=== PATIENT | male | born 1955 | race Caucasian/White ===

== ENCOUNTER 2022-01-08 01:20 | Emergency (ER) | payer BC ==
[~2022-01-08] VITALS: Ht 180.1 cm; Wt 134.7 kg
[2022-01-08 01:38] LABS: BASOPHILS # (AUTO) 0.1 10^3/uL (0.0-0.1); BASOPHILS % (AUTO) 0 % (0-10); EOSINOPHILS % (AUTO) 0 % (0-10); HEMATOCRIT 25 % (40-54); HEMOGLOBIN 8.2 g/dL (13.3-17.7); LYMPHOCYTES # (AUTO) 4.5 10^3/uL (1.0-4.0); LYMPHOCYTES % (AUTO) 29 % (12-44); MEAN CORPUSCULAR HEMOGLOBIN 33 pg (25-34); MEAN CORPUSCULAR HGB CONC 34 g/dL (32-36); MEAN CORPUSCULAR VOLUME 98 fL (80-99); MEAN PLATELET VOLUME 12.7 fL (9.0-12.2); MONOCYTES # (AUTO) 1.5 10^3/uL (0.0-1.0); MONOCYTES % (AUTO) 9 % (0-12); NEUTROPHILS # (AUTO) 9.6 10^3/uL (1.8-7.8); NEUTROPHILS % (AUTO) 61 % (42-75); PLATELET COUNT 107 10^3/uL (130-400); WHITE BLOOD COUNT 15.8 10^3/uL (4.3-11.0)
--- NOTE | 2022-01-08 01:42 | ED GI ---
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 HAS BEEN HAVING BLACK STOOLS SINCE THE DAY BEFORE YESTERDAY STOMACH HURTS "A LITTLE BIT" SLIGHT DIZZINESS NO CHEST PAIN SLIGHT SHORTNESS OF BREATH DENIES HISTORY OF SIMILAR DENIES HISTORY OF GI OR ABDOMINAL PROBLEMS, DENIES HISTORY OF LIVER PROBLEMS TAKES 81 MG ASPIRIN, NO OTHER BLOOD THINNERS STATES HE QUIT DRINKING 29 YEARS AGO, AND QUIT USING DRUGS 29 YEARS AGO SMOKES 1/2 PPD PT STATES HE HAS HTN AND DIABETES DENIES ANY PRIOR HEART PROBLEMS OR PROCEDURES LAST FOOD INTAKE WAS 0400 YESTERDAY MORNING--HAD A BOWL OF CEREAL Allergies and Home Medications Allergies Coded Allergies: No Known Drug Allergies (Unverified , 01/08/22) Patient Home Medication List Home Medication List Reviewed: Yes Review of Systems Review of Systems Constitutional: see HPI, malaise, weakness Respiratory: See HPI, Shortness of Air Cardiovascular: No Symptoms Reported Gastrointestinal: See HPI, Abdominal Pain, Vomiting Psychiatric/Neurological: No Symptoms Reported Endocrine: No Symptoms Reported Past Ossbqbd-Qnadqz-Czqqju Hx Patient Social History Tobacco Use?: Yes Tobacco type used: Cigarettes Smoking Status: Current Everyday Smoker Substance use?: Yes Substance type: Marijuana Additional substance use comme: QUIT 29 YEARS AGO Alcohol Use?: Yes (QUIT 29 YEARS AGO) Past Medical History Surgeries: Yes (BILATERAL KNEE REPLACEMENTS; LEFT SHOULDER SURGERY) Joint Replacement, Orthopedic Respiratory: No Cardiac: Yes Hypertension Neurological: No Genitourinary: No Gastrointestinal: No Musculoskeletal: Yes Arthritis Endocrine: Yes Diabetes, Non-Insulin dep HEENT: No Cancer: No Integumentary: No Blood Disorders: No Physical Exam Vital Signs Vital Signs - First Documented 01/08/22 01/08/22 01:24 02:43 Temp 36.9 Pulse 86 Resp 20 B/P (MAP) 73/54 (60) Pulse Ox 99 O2 Delivery Room Air O2 Flow Rate 2.00 Capillary Refill : Height/Weight/BMI Height: '" Weight: lbs. oz. kg; BMI Method: General Appearance: WD/WN, obese, other (LETHARGIC, KEEPS EYES CLOSED. PT WITH LARGE AMOUNT OF BRIGHT RED BLOOD IN AND AROUND MOUTH/CHIN/NECK AND ON FACE. LARGE AMOUNT OF DRIED BLOOD ON LEGS. ) HEENT: pale conjunctivae (R), pale conjunctivae (L), other (BRIGHT RED BLOOD IN MOUTH) Respiratory: normal breath sounds, no respiratory distress, no accessory muscle use Cardiovascular: regular rate, rhythm, no murmur Gastrointestinal: normal bowel sounds, non tender, soft Extremities: normal inspection Neurologic/Psychiatric: no motor/sensory deficits, alert, oriented x 3 Skin: cool, diaphoresis, damp, pallor, tattoos/piercings (MULTIPLE TATTOOS) Progress/Results/Core Measures Results/Orders Lab Results Laboratory Tests Test 01/08/22 01:29 01/08/22 02:03 01/08/22 03:40 01/08/22 04:15 Range/Units White Blood Count 15.8 H 11.4 H 11.8 H 4.3-11.0 10^3/uL Red Blood Count 2.51 L 1.84 L 2.67 L 4.30-5.52 10^6/uL Hemoglobin 8.2 L 6.0 #*L 8.7 #L 13.3-17.7 g/dL Hematocrit 25 L 18 *L 26 L 40-54 % Mean Corpuscular Volume 98 100 H 97 80-99 fL Mean Corpuscular Hemoglobin 33 33 33 25-34 pg Mean Corpuscular Hemoglobin Concent 34 33 34 32-36 g/dL Red Cell Distribution Width 15.6 H 15.3 H 15.1 H 10.0-14.5 % Platelet Count 107 L 84 L 58 L 130-400 10^3/uL Mean Platelet Volume 12.7 H 12.1 13.3 H 9.0-12.2 fL Immature Granulocyte % (Auto) 0 % Neutrophils (%) (Auto) 61 42-75 % Lymphocytes (%) (Auto) 29 12-44 % Monocytes (%) (Auto) 9 0-12 % Eosinophils (%) (Auto) 0 0-10 % Basophils (%) (Auto) 0 0-10 % Neutrophils # (Auto) 9.6 H 1.8-7.8 10^3/uL Lymphocytes # (Auto) 4.5 H 1.0-4.0 10^3/uL Monocytes # (Auto) 1.5 H 0.0-1.0 10^3/uL Eosinophils # (Auto) 0.0 0.0-0.3 10^3/uL Basophils # (Auto) 0.1 0.0-0.1 10^3/uL Immature Granulocyte # (Auto) 0.1 0.0-0.1 10^3/uL Neutrophils % (Manual) 60 % Lymphocytes % (Manual) 29 % Monocytes % (Manual) 11 % Band Neutrophils 0 % Blood Morphology Comment NORMAL Prothrombin Time 17.8 H 12.2-14.7 SEC INR Comment 1.4 0.8-1.4 Activated Partial Thromboplast Time 31 24-35 SEC Sodium Level 142 135-145 MMOL/L Potassium Level 5.2 H 3.6-5.0 MMOL/L Chloride Level 108 H 98-107 MMOL/L Carbon Dioxide Level 15 L 21-32 MMOL/L Anion Gap 19 H 5-14 MMOL/L Blood Urea Nitrogen 77 H 7-18 MG/DL Creatinine 1.76 H 0.60-1.30 MG/DL Estimat Glomerular Filtration Rate 43 BUN/Creatinine Ratio 44 Glucose Level 169 H 70-105 MG/DL Calcium Level 9.0 8.5-10.1 MG/DL Corrected Calcium 10.0 8.5-10.1 MG/DL Magnesium Level 2.0 1.6-2.4 MG/DL Total Bilirubin 0.7 0.1-1.0 MG/DL Aspartate Amino Transf (AST/SGOT) 27 5-34 U/L Alanine Aminotransferase (ALT/SGPT) 22 0-55 U/L Alkaline Phosphatase 51 40-136 U/L Total Protein 5.2 L 6.4-8.2 GM/DL Albumin 2.8 L 3.2-4.5 GM/DL Amylase Level 52 25-125 U/L Lipase 55 8-78 U/L Serum Alcohol < 10 <10 MG/DL Urine Color YELLOW Urine Clarity CLEAR Urine pH 5.5 5-9 Urine Specific [place] >=1.030 1.016-1.022 Urine Protein NEGATIVE NEGATIVE Urine Glucose (UA) NEGATIVE NEGATIVE Urine Ketones TRACE H NEGATIVE Urine Nitrite NEGATIVE NEGATIVE Urine Bilirubin NEGATIVE NEGATIVE Urine Urobilinogen 0.2 < = 1.0 MG/DL Urine Leukocyte Esterase NEGATIVE NEGATIVE Urine RBC (Auto) NEGATIVE NEGATIVE Urine RBC NONE /HPF Urine WBC NONE /HPF Urine Squamous Epithelial Cells 0-2 /HPF Urine Crystals NONE /LPF Urine Bacteria NEGATIVE /HPF Urine Casts PRESENT /LPF Urine Hyaline Casts 5-10 H /LPF Urine Mucus MODERATE H /LPF Urine Culture Indicated NO Urine Opiates Screen NEGATIVE NEGATIVE Urine Oxycodone Screen NEGATIVE NEGATIVE Urine Methadone Screen NEGATIVE NEGATIVE Urine Propoxyphene Screen NEGATIVE NEGATIVE Urine Barbiturates Screen NEGATIVE NEGATIVE Ur Tricyclic Antidepressants Screen POSITIVE H NEGATIVE Urine Phencyclidine Screen NEGATIVE NEGATIVE Urine Amphetamines Screen NEGATIVE NEGATIVE Urine Methamphetamines Screen NEGATIVE NEGATIVE Urine Benzodiazepines Screen NEGATIVE NEGATIVE Urine Cocaine Screen NEGATIVE NEGATIVE Urine Cannabinoids Screen NEGATIVE NEGATIVE Test 01/08/22 04:35 01/08/22 05:47 01/08/22 12:05 Range/Units SARS-CoV-2 RNA (RT-PCR) Not Detected Not Detecte White Blood Count 12.0 H 4.3-11.0 10^3/uL Red Blood Count 2.67 L 4.30-5.52 10^6/uL Hemoglobin 8.8 L 13.3-17.7 g/dL Hematocrit 26 L 40-54 % Mean Corpuscular Volume 96 80-99 fL Mean Corpuscular Hemoglobin 33 25-34 pg Mean Corpuscular Hemoglobin Concent 34 32-36 g/dL Red Cell Distribution Width 15.4 H 10.0-14.5 % Platelet Count 65 L 130-400 10^3/uL Mean Platelet Volume 12.9 H 9.0-12.2 fL Lab Scanned Report Transfusion Reaction Form [id number] My Orders Orders - XIOMARA CRANDALL DO Ed Iv/Invasive Line Start (01/08/22:25) Monitor-Rhythm Ecg Trace Only (01/08/22:25) Alcohol (01/08/22 01:25) Amylase (01/08/22 01:25) Cbc With Automated Diff (01/08/22:25) Comprehensive Metabolic Panel (01/08/22:25) Lipase (01/08/22:25) Magnesium (01/08/22:25) Protime With Inr (01/08/22:25) Partial Thromboplastin Time (01/08/22:25) Ed Iv/Invasive Line Start (01/08/22:25) Ed Iv/Invasive Line Start (01/08/22 01:34) Ns Iv 1000 Ml (Sodium Chloride 0.9%) (01/08/22 01:45) Ed Iv/Invasive Line Start (01/08/22 01:34) Ns Iv 1000 Ml (Sodium Chloride 0.9%) (01/08/22 01:45) Ondansetron Injection (Zofran Injectio (01/08/22 01:45) Pantoprazole Injection (Protonix Injecti (01/08/22 01:45) Drug Screen Stat (Urine) (01/08/22 01:35) Ua Culture If Indicated (01/08/22 01:35) Type And Screen (01/08/22 01:35) Manual Differential (01/08/22 01:29) Ct Chest/Abdomen/Pelvis Wo (01/08/22 02:02) Ed Iv/Invasive Line Start (01/08/22 02:04) Ns Iv 1000 Ml (Sodium Chloride 0.9%) (01/08/22 02:15) Red Cells Leukocytes Reduced (01/08/22 02:08) Cbc No Diff (01/08/22 02:09) Ns Iv 500 Ml (Sodium Chloride 0.9%) (01/08/22 02:29) Ed Iv/Invasive Line Start (01/08/22 02:35) Ns Iv 1000 Ml (Sodium Chloride 0.9%) (01/08/22 02:45) Catheter(Urinary) Insert & Ass 03,15 (01/08/22 03:21) Cbc No Diff (01/08/22 04:12) Covid 19 Inhouse Test (01/08/22 04:33) Isolation Central Supply Req (01/08/22 04:33) Cbc No Diff (01/08/22 05:34) Octreotide Injection (Sandostatin Inje (01/08/22 06:00) Ns (Ivpb) (Sodium C... W/Octreotide Inj (01/08/22 06:00) Ns (Ivpb) (Sodium C... W/Pantoprazole In (01/08/22 06:00) Fresh Frozen Plasma (01/08/22 05:47) Ns Iv 500 Ml (Sodium Chloride 0.9%) (01/08/22 06:00) Ns (Ivpb) (Sodium Chloride 0.9% Ivpb Bag (01/08/22 05:52) Octreotide Injection (Sandostatin Inje (01/08/22 05:53) Medications Given in ED Vital Signs/I&O 01/08/22 01/08/22 01/08/22 01/08/22 01:24 02:43 02:49 02:55 Temp 36.9 36.5 36.4 36.4 Pulse 86 77 75 77 Resp 20 16 20 19 B/P (MAP) 73/54 (60) 71/36 106/38 91/34 Pulse Ox 99 100 O2 Delivery Room Air Nasal Cannula Nasal Cannula Nasal Cannula O2 Flow Rate 2.00 2.00 2.00 01/08/22 01/08/22 03:20 06:50 Temp 36.7 36.6 Pulse 79 75 Resp 15 20 B/P (MAP) 92/59 109/54 Pulse Ox 96 99 O2 Delivery Nasal Cannula Nasal Cannula O2 Flow Rate 2.00 2.00 Progress Progress Note : Progress Note INITIAL BP'S 60'S-70'S/30'S GIVEN IV FLUIDS, ZOFRAN AND PROTONIX--NAUSEA RESOLVED PT REMAINED SEVERELY HYPOTENSIVE UNTIL BLOOD TRANSFUSION WAS GIVEN, THEN BP UP TO 90'S NO DROP IN HGB AFTER BLOOD TRANSFUSION 0430--BP IS NOW 109 SYSTOLIC, HR IN MID 70'S, O2 SAT 100% ON 2L/NC BP REMAINED IN 90'S FOR REMAINDER OF ER STAY PT STATES HE FEELS BETTER AND "CAN SEE NOW" COLOR IS MUCH IMPROVED. MARKED DELAY IN OBTAINING CT REPORT Diagnostic Imaging Comments CT CHEST/ABDOMEN/PELVIS--PER [facility] VIA FAX AT 0430: -CIRRHOSIS AND GASTRO-ESOPHAGEAL VARICES SUSPECTED; CHOLELITHIASISL MILD COLONIC DIVERTICULOSIS WITHOUT ACUTE DIVERTICULITISL 6 MM NODULE LLL. Reviewed: Reviewed by Me Departure Communication (Admissions) 0430--CALLED [facility]. PAGING HOSPITALIST/TRUCK DRIVING, AND WILL CALL BACK. 0506--CALLED [facility], STILL ATTEMPTING TO CONTACT HOSPITALIST/TRUCK DRIVING. THEY WILL CALL BACK. INFORMED THEM OF NEGATIVE COVID-19 TEST. 0545--[facility] CALLED BACK. SPOKE WITH DR. PAGAN, BASKET BRAIDER, ADVISES 1 UNIT OF FFP, OCTREOTIDE BOLUS AND DRIP AND PROTONIX DRIP. PT TO GO TO ER. PAGING ER PHYSICIAN. 0552--AIR TRANSPORT BEING CONTACTED. 0558--SPOKE WITH DR. NICHOLS, ER PHYSICIAN, ACCEPTS PT FOR TRANSFER. 0600--NO AIR TRANSPORT AVAILABLE DUE TO WEATHER. [facility] IS EN ROUTE FOR EMERGENT TRANSFER Impression Primary Impression: Acute upper gastrointestinal hemorrhage Additional Impressions: Nontraumatic hemorrhagic shock Acute blood loss anemia Dehydration Renal insufficiency Esophageal varices with bleeding Cirrhosis Disposition: XFER SHT-TRM HOSP Condition: Stable Transfer Transfer Reason: Exceeds level of care (NO GI SPECIALIST HERE) Transfer Facility: [facility] Method of Transfer: EMS Departure-Patient Inst. Referrals: UNKNOWN (PCP) Primary Care Physician XIOMARA CRANDALL DO Jan 08, 2022 01:42
[2022-01-08] MEDS ORDERED: ONDANSETRON 4 MG/2 ML (SDV) Z0FRAN IVP ONE (01:45)
[2022-01-08] MEDS ORDERED: PANTOPRAZOLE 40 MG (PROTONIX) VIAL IV ONE (01:45)
[2022-01-08] MEDS ORDERED: NS IV 1000 ML 1,000 ML IV SCH ×4 (01:45→02:45)
[2022-01-08 01:50] LABS: ALBUMIN 2.8 GM/DL (3.2-4.5); CHLORIDE 108 MMOL/L (98-107); POTASSIUM 5.2 MMOL/L (3.6-5.0); SODIUM 142 MMOL/L (135-145)
[2022-01-08 01:51] LABS: INR 1.4 (0.8-1.4); PROTHROMBIN TIME PATIENT 17.8 SEC (12.2-14.7)
[2022-01-08 01:52] LABS: AMYLASE 52 U/L (25-125)
[2022-01-08 01:53] LABS: GLUCOSE 169 MG/DL (70-105); TOTAL PROTEIN 5.2 GM/DL (6.4-8.2)
[2022-01-08 01:54] LABS: BILIRUBIN,TOTAL 0.7 MG/DL (0.1-1.0); CARBON DIOXIDE 15 MMOL/L (21-32)
[2022-01-08 01:56] LABS: ALKALINE PHOSPHATASE 51 U/L (40-136); CREATININE SERUM 1.76 MG/DL (0.60-1.30); GFR ESTIMATED 43
[2022-01-08 01:57] LABS: BUN/CREATININE RATIO 44
[2022-01-08 01:59] LABS: ALANINE AMINOTRANSFERASE 22 U/L (0-55)
[2022-01-08 02:00] LABS: LIPASE 55 U/L (8-78)
[2022-01-08 02:21] LABS: MEAN CORPUSCULAR HEMOGLOBIN 33 pg (25-34); MEAN CORPUSCULAR HGB CONC 33 g/dL (32-36); MEAN CORPUSCULAR VOLUME 100 fL (80-99); MEAN PLATELET VOLUME 12.1 fL (9.0-12.2); PLATELET COUNT 84 10^3/uL (130-400); WHITE BLOOD COUNT 11.4 10^3/uL (4.3-11.0)
[2022-01-08 02:22] LABS: HEMATOCRIT 18 % (40-54)
[2022-01-08] MEDS ORDERED: NS IV 500 ML 500 ML ONE (02:29)
[2022-01-08 02:31] LABS: BAND NEUTROPHILS 0 %; LYMPHOCYTES % (MANUAL) 29 %; NEUTROPHILS % (MANUAL) 60 %
[2022-01-08 02:32] LABS: MONOCYTES % (MANUAL) 11 %; RBC MORPH NORMAL
[2022-01-08 02:43] VITALS: BP 71/36
[2022-01-08 02:49] VITALS: BP 106/38
[2022-01-08 02:55] VITALS: BP 91/34
[2022-01-08 03:20] VITALS: BP 92/59
[2022-01-08 03:49] LABS: BILIRUBIN,URINE NEGATIVE (NEGATIVE); CLARITY,URINE CLEAR; COLOR,URINE YELLOW; GLUCOSE, URINE (UA) NEGATIVE (NEGATIVE); KETONES,URINE TRACE (NEGATIVE); LEUKOCYTE ESTERASE ,URINE NEGATIVE (NEGATIVE); NITRITE,URINE NEGATIVE (NEGATIVE); PH,URINE 5.5 (5-9); PROTEIN,URINE NEGATIVE (NEGATIVE)
[2022-01-08 03:59] LABS: AMPHETAMINE SCREEN, URINE NEGATIVE (NEGATIVE); BACTERIA,URINE NEGATIVE /HPF; BARBITURATE SCREEN URINE NEGATIVE (NEGATIVE); BENZODIAZEPINES SCREEN URINE NEGATIVE (NEGATIVE); CANNABINOID SCREEN, URINE NEGATIVE (NEGATIVE); COCAINE SCREEN URINE NEGATIVE (NEGATIVE); METHAMPHETAMINE SCREEN URINE S NEGATIVE (NEGATIVE); OPIATE SCREEN URINE NEGATIVE (NEGATIVE); SQUAMOUS EPITHELIAL CELL,UR 0-2 /HPF; TRICYCLIC ANTIDEPRESSANTS SCRE POSITIVE (NEGATIVE)
[2022-01-08 04:00] LABS: METHADONE STAT NEGATIVE (NEGATIVE); OXYCODONE STAT NEGATIVE (NEGATIVE); PROPOXYPHENE STAT NEGATIVE (NEGATIVE)
[2022-01-08 04:22] LABS: HEMATOCRIT 26 % (40-54); HEMOGLOBIN 8.7 g/dL (13.3-17.7); MEAN CORPUSCULAR HEMOGLOBIN 33 pg (25-34); MEAN CORPUSCULAR HGB CONC 34 g/dL (32-36); MEAN CORPUSCULAR VOLUME 97 fL (80-99); MEAN PLATELET VOLUME 13.3 fL (9.0-12.2); PLATELET COUNT 58 10^3/uL (130-400); WHITE BLOOD COUNT 11.8 10^3/uL (4.3-11.0)
[2022-01-08] MEDS ORDERED: NS (IVPB) 100 ML ONE (05:52)
[2022-01-08] MEDS ORDERED: OCTREOTIDE (FOR BOLUS) 50 MCG/ML SYR (SandoSTATIN) ONE (05:53)
[2022-01-08 05:54] LABS: HEMATOCRIT 26 % (40-54); HEMOGLOBIN 8.8 g/dL (13.3-17.7); MEAN CORPUSCULAR HEMOGLOBIN 33 pg (25-34); MEAN CORPUSCULAR HGB CONC 34 g/dL (32-36); MEAN CORPUSCULAR VOLUME 96 fL (80-99); MEAN PLATELET VOLUME 12.9 fL (9.0-12.2); PLATELET COUNT 65 10^3/uL (130-400)
[2022-01-08] MEDS ORDERED: OCTREOTIDE INJECTION 50 MCG in NS (IVPB) 50 ML IV ONE (06:00)
[2022-01-08] MEDS ORDERED: NS IV 500 ML 500 ML IV SCH (06:00)
[2022-01-08] MEDS ORDERED: PANTOPRAZOLE INJECTION 200 MG in NS (IVPB) 100 ML IV SCH (06:00)
[2022-01-08] MEDS ORDERED: OCTREOTIDE INJECTION 500 MCG in NS (IVPB) 99 ML IV SCH (06:00)
--- NOTE | 2022-01-08 06:22 | Diagnostic Imaging Report ---
INDICATION: Gastrointestinal bleed. TECHNIQUE: Multiple contiguous axial images were obtained through the chest, abdomen, and pelvis without the use of intravenous contrast. Auto Exposure Controls were utilized during the CT exam to meet ALARA standards for radiation dose reduction. There is no prior study for comparison. CT chest findings: There are no enlarged mediastinal or hilar nodes. There are no enlarged axillary nodes or chest wall lesions. There is no pleural or pericardial fluid. Aorta is nonaneurysmal. There are some coronary calcifications. Lung parenchymal windows demonstrate mild bibasilar atelectasis. There is no consolidation. There is a small 7 mm nodule in the left lower lobe. CT abdomen and pelvis findings: The liver shows diffuse inhomogeneity with nodular contour compatible with cirrhosis. There is some questionable varices. No definite focal liver lesion seen without contrast. There are incidental gallstones in the gallbladder, gallbladder is not distended. The spleen, adrenals, and pancreas are normal. The kidneys bilaterally are unremarkable. There is no retroperitoneal mass or adenopathy. There is no ascites or abnormal fluid collection. Visualized bowel loops are not distended or thickened. There is a small periumbilical hernia containing fat. There is no pelvic mass or free fluid. IMPRESSION: CT chest shows no acute finding. There is a small 7 mm nodule in the left lower lobe, suggest follow-up in 6-12 months. There is mild bibasilar atelectasis. CT abdomen and pelvis demonstrates diffuse inhomogeneity of the liver, question cirrhosis. There is some questionable varices. There are incidental gallstones. There is no sign of bowel obstruction or focal bowel wall thickening. Dictated by: Dictated on workstation # [id number]
[2022-01-08 06:50] VITALS: BP 109/54
== END 2022-01-08 06:45 | disposition short-term general hospital (02) ==
LOC: ER 01:26
DX: K92.2 Gastrointestinal hemorrhage, unspecified (principal); R57.8 Other shock; D62 Acute posthemorrhagic anemia; E86.0 Dehydration; N28.9 Disorder of kidney and ureter, unspecified; I85.01 Esophageal varices with bleeding; K74.60 Unspecified cirrhosis of liver; E66.9 Obesity, unspecified; F17.210 Nicotine dependence, cigarettes, uncomplicated; Z20.822 Contact with and (suspected) exposure to COVID-19
CPT/HCPCS: 51702; 71250; 74176; 80053; 80306; 81000; 82150; 83690; 83735; 85007; 85027; 85610; 85730; 86850; 86900; 86901; 86920; 87636; 93041; G0480; P9016; P9017; 36415; 80320

== ENCOUNTER 2022-01-13 17:37 | Emergency (ER) | payer BC ==
[~2022-01-13] VITALS: Ht 182 cm; Wt 136.0 kg
[2022-01-13] MEDS ORDERED: ONDANSETRON 4 MG/2 ML (SDV) Z0FRAN ONE (17:43)
[2022-01-13] MEDS ORDERED: ONDANSETRON 4 MG/2 ML (SDV) Z0FRAN IVP ONE ×2 (17:45→18:45)
[2022-01-13] MEDS ORDERED: OCTREOTIDE INJECTION 50 MCG in NS (IVPB) 50 ML IV ONE ×2 (17:45→18:15)
[2022-01-13] MEDS ORDERED: NS IV 1000 ML 1,000 ML IV SCH ×3 (17:45→18:45)
[2022-01-13] MEDS ORDERED: NOREPINEPHRINE 8 MG/250 ML 250 ML IV SCH (17:45)
[2022-01-13] MEDS ORDERED: PANTOPRAZOLE INJECTION 200 MG in NS (IVPB) 100 ML IV SCH (17:45)
[2022-01-13] MEDS ORDERED: PANTOPRAZOLE 40 MG (PROTONIX) VIAL IV ONE ×2 (17:45→18:15)
[2022-01-13] MEDS ORDERED: NS IV 1000 ML 1,000 ML IV ONE (17:45)
[2022-01-13] MEDS ORDERED: NOREPINEPHRINE 8 MG/250 ML 250 ML IV ONE (17:48)
[2022-01-13] MEDS ORDERED: NS (IVPB) 100 ML ONE (17:48)
[2022-01-13] MEDS ORDERED: OCTREOTIDE (FOR BOLUS) 50 MCG/ML SYR (SandoSTATIN) ONE (17:48)
--- NOTE | 2022-01-13 17:53 | ED GI ---
General Stated Complaint: SPITTING UP BLOOD/DIZZY Source of Information: Patient, EMS, Old Records (XIOMARA CRANDALL DO) History of Present Illness Date Seen by Provider: Jan 13, 2022 Time Seen by Provider: 17:43 Initial Comments PT ARRIVES VIA EMS PT SEEN HERE 01/08/22 FOR NEW ONSET OF UPPER GI BLEED, WITH HEMORRHAGIC SHOCK--TRANSFERRED TO [facility] FOR ESOPHAGEAL VARICES. 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 PT HAS DENIED EVERY HAVING ANY GI OR LIVER PROBLEMS PRIOR TO LAST WEEK. PT HAS REPORTED THAT HE QUIT DRINKING 29 YEARS AGO. SEE OLD CHART FOR DETAILS (XIOMARA CRANDALL DO) Allergies and Home Medications Allergies Coded Allergies: No Known Drug Allergies (Unverified , 01/08/22) Patient Home Medication List Home Medication List Reviewed: Yes (XIOMARA CRANDALL DO) Review of Systems Review of Systems Constitutional: dizziness, malaise, weakness Gastrointestinal: Abdominal Pain, Nausea, Vomiting, Other (VOMITING BLOOD) (XIOMARA CRANDALL DO) Past Huedsjr-Hlvsjx-Zitujj Hx Immunizations Up To Date First/Initial COVID19 Vaccinat: 2020 Second COVID19 Vaccination Hieu: 2020 (XIOMARA CRANDALL DO) Past Medical History Surgeries: Yes (BILAT KNEE REPLACEMENTS;L SHOULDER SURGERY;EGD/ESOPHAGEAL VARICES BANDING) Joint Replacement, Orthopedic Respiratory: No Cardiac: Yes Hypertension Neurological: No Genitourinary: No Gastrointestinal: Yes (01/08/22-UGI BLEED/ESOPHAGEAL VARICES BANDED) Liver Disease/Jaundice, Gastrointestinal Bleed, Esophageal Varices, Cirrhosis Musculoskeletal: Yes Arthritis Endocrine: Yes (OBESITY) Diabetes, Non-Insulin dep HEENT: No Cancer: No Integumentary: No Blood Disorders: Yes (GI BLOOD LOSS ANEMIA 01/07/22) (XIOMARA CRANDALL DO) Physical Exam Vital Signs Capillary Refill : (XIOMARA CRANDALL DO) Height/Weight/BMI Height: '" Weight: lbs. oz. kg; 41.00 BMI Method: General Appearance: obese, other (MOANING, LETHARGIC. GIVING MINIMAL ANSWERS) Respiratory: normal breath sounds, no respiratory distress, no accessory muscle use Cardiovascular: regular rate, rhythm, no murmur Gastrointestinal: tenderness (DIFFUSE UPPER ABDOMINAL TENDERNESS), other (ABDOMEN IS OBESE--UNABLE TO DETERMINE IF ORGANOMEGALY IS PRESENT) Extremities: pedal edema (2+ EDEMA BILATERALL) Neurologic/Psychiatric: no motor/sensory deficits, alert Skin: cool, pallor, other (DRY) (XIOMARA CRANDALL DO) Procedures/Interventions Lumen: triple Central Line Procedure: betadine prep (Chlorhexidine), sterile drapes applied, sterile dressing applied Position: internal jugular (R) Anesthesia: Lidocaine (1%) Volume Anesthetic (ccs): 3 Complications: none Post Position: sutured, good blood return, position confirmed w/ CXR Risks, benefits and alternatives were discussed with the patient and the patient consented to the procedure. The patient was positioned in the usual format and using the usual sterile garments and drapes the patient was dressed out. The skin was thoroughly cleaned with the supplied chlorhexidine prep. After the prep had dried a sterile drape was placed. The 20 cm 7 Urdu triple-lumen catheter was flushed with sterile saline. We used ultrasound guidance to pass the introducer needle into the right internal jugular without difficulty. A guidewire was placed easily without difficulty. No ectopy was seen on the monitor. The supplied 11 blade scalpel was used to make a 2 mm incision at the inferior portion of the introducer needle. The introducer needle was replaced with the dilator. The dilator was taken out and the patient had the central lumen of the triple lumen catheter threaded over the guidewire and placed at 14.5 cm. The guidewire was removed and the triple-lumen catheter was stitched in place using the supplied braided stitch at 2 different points. The catheter withdrew blood and flushed easily. A sterile dressing was placed over the catheter. The patient tolerated the procedure well. A chest x-ray was obtained that demonstrated no pneumothorax and a new interval central catheter over the shadow of the right internal jugular down the superior vena cava and terminating just proximal to the right atria. (MIHAELA TOBIAS) Progress/Results/Core Measures Results/Orders Lab Results Laboratory Tests Test 01/13/22 17:49 3/14/22 17:54 Range/Units White Blood Count 14.4 H 4.3-11.0 10^3/uL Red Blood Count 2.35 L 4.30-5.52 10^6/uL Hemoglobin 7.6 L 13.3-17.7 g/dL Hematocrit 25 L 40-54 % Mean Corpuscular Volume 106 H 80-99 fL Mean Corpuscular Hemoglobin 32 25-34 pg Mean Corpuscular Hemoglobin Concent 31 L 32-36 g/dL Red Cell Distribution Width 16.8 H 10.0-14.5 % Platelet Count 35 *L 130-400 10^3/uL Mean Platelet Volume 12.8 H 9.0-12.2 fL Immature Granulocyte % (Auto) 2 % Neutrophils (%) (Auto) 59 42-75 % Lymphocytes (%) (Auto) 26 12-44 % Monocytes (%) (Auto) 10 0-12 % Eosinophils (%) (Auto) 2 0-10 % Basophils (%) (Auto) 1 0-10 % Neutrophils # (Auto) 8.6 H 1.8-7.8 10^3/uL Lymphocytes # (Auto) 3.7 1.0-4.0 10^3/uL Monocytes # (Auto) 1.5 H 0.0-1.0 10^3/uL Eosinophils # (Auto) 0.3 0.0-0.3 10^3/uL Basophils # (Auto) 0.1 0.0-0.1 10^3/uL Immature Granulocyte # (Auto) 0.3 H 0.0-0.1 10^3/uL (MIHAELA TOBIAS) My Orders Orders - MIHAELA TOBIAS Ondansetron Injection (Zofran Injectio (01/13/22 17:43) Ns (Ivpb) (Sodium C... W/Pantoprazole In (01/13/22 17:45) Pantoprazole Injection (Protonix Injecti (01/13/22 17:45) Octreotide Injection (Sandostatin Inje (01/13/22 17:45) Ondansetron Injection (Zofran Injectio (01/13/22 17:45) Ed Iv/Invasive Line Start (01/13/22 17:44) Ns Iv 1000 Ml (Sodium Chloride 0.9%) (01/13/22 17:45) Ns Iv 1000 Ml (Sodium Chloride 0.9%) (01/13/22 17:45) Norepinephrine 8 Mg/250 Ml (Norepinephri (01/13/22 17:45) Ns (Ivpb) (Sodium Chloride 0.9% Ivpb Bag (01/13/22 17:48) Octreotide Injection (Sandostatin Inje (01/13/22 17:48) (MIHAELA TOBIAS) Medications Given in ED Current Medications Medications Dose Ordered Sig/Albino Route Start Time Stop Time Status Last Admin Dose Admin Ondansetron HCl 8 mg ONCE ONCE IVP 01/13/22 17:45 01/13/22 17:47 DC 01/13/22 17:57 8 MG Pantoprazole 40 mg ONCE ONCE IV 01/13/22 17:45 01/13/22 17:47 DC 01/13/22 18:00 40 MG (MIHAELA TOBIAS) Progress Progress Note : Progress Note INITIAL BP IN 50'S SYSTOLIC CENTRAL LINE PLACED BY DR. TOBIAS ON ARRIVAL PT GIVEN IV FLUIDS, PROTONIX BOLUS AND DRIP, OCTREOTIDE BOLUS AND DRIP PT GIVEN ZOFRAN FOR NAUSEA GIVEN FENTANYL FOR ABDOMINAL PAIN STARTED ON LEVOPHED UNTIL BLOOD PRODUCTS ARRIVED FROM LAB GIVEN 3 UNITS OF BLOOD, 1 UNIT OF PLATELETS AND 1 UNIT OF FFP RAVI > 100 SYSTOLIC AT TIME OF TRANSFER BP 117/43/HR 72, RR 15, O2 SAT 100% ON 4L/NC (XIOMARA CRANDALL DO) Diagnostic Imaging Comments CXR--PER RADIOLOGIST REPORT AT 1840 FINDINGS: There is a right jugular line with the tip in the mid to proximal SVC. There is cardiomegaly. Pulmonary vasculature normal. There is mild elevation of left hemidiaphragm. No infiltrates, effusions or pneumothorax. IMPRESSION: 1. Central line as above. No acute cardiopulmonary process. Reviewed: Reviewed by Me (XIOMARA CRANDALL DO) Critical Care Note Critical Care Start Time: 19:43 Total Time (minutes) > 90 MINUTES (XIOMARA CRANDALL DO) Departure Communication (Admissions) 1746--CALLED [facility]. 1750--SPOKE WITH DR. FAN, ER PHYSICIAN. ADVISED TO CONTACT GI. PAGING DR. CHEUNG, VIDEO NEWS EDITOR 1756--SPOKE WITH DR. CHEUNG, HE ADVISES THAT PT WAS DX WITH ESOPHAGEAL AND GASTRIC VARICES WELL LARGE GASTRIC ULCER. ADVISES THAT THEY WERE ABLE TO DO BANDING OF ESOPHAGEAL VARICES, BUT DO NOT HAVE CAPABILITY TO TREAT THE GASTRIC VARICES. HE ADVISES TRANSFER TO FOR HIGHER LEVEL OF CARE 1800--CALLED [facility]. WILL CALL THEM BACK WITH LAB RESULTS. IMAGES ARE BEING CLOUDED TO [facility]. 1800--STAFF ARE ATTEMPTING TO ARRANGE FOR AIR TRANSPORT [id number] [facility]. LAB RESULTS AND UPDATE ON PT'S CONDITION. THEY WILL CONTACT ICU / TRANSFER PHYSICIAN AND CALL BACK. 1849--NO AIR TRANSPORT SERVICES AVAILABLE TO DUE WEATHER. [facility] HAS BEEN CONTACTED FOR NEED FOR EMERGENT TRANSFER 1900--[facility] CALLED BACK. DR. MASHA HAGER HAS ACCEPTED PT FOR TRANSPORT. THEY REQUEST THAT I CONTACT [facility] AND HAVE THEM FAX THE ENDOSCOPY PROCEDURE REPORT TO THEM AT [phone]. 1903--CALLED [facility] AND REQUESTED THEY FAX ENDOSCOPY REPORT TO [facility]. 2034--[facility] HERE FOR TRANSFER (XIOMARA CRANDALL DO) Impression Primary Impression: Acute upper gastrointestinal hemorrhage Additional Impressions: Nontraumatic hemorrhagic shock Acute blood loss anemia Cirrhosis Thrombocytopenia Esophageal varices with bleeding REPORTED GASTRIC VARICES REPORTED GASTRIC ULCER Hyperglycemia Disposition: 02 XFER SHT-TRM HOSP Condition: Stable Transfer Transfer Reason: Exceeds level of care Transfer Facility: Method of Transfer: EMS (XIOMARA CRANDALL DO) Departure-Patient Inst. Referrals: NO,LOCAL PHYSICIAN (PCP/Family) Primary Care Physician XIOMARA CRANDALL DO Jan 13, 2022 17:53 MIHAELA TOBIAS Jan 13, 2022 18:14
[2022-01-13 17:54] LABS: BASOPHILS # (AUTO) 0.1 10^3/uL (0.0-0.1); BASOPHILS % (AUTO) 1 % (0-10); EOSINOPHILS # (AUTO) 0.3 10^3/uL (0.0-0.3); EOSINOPHILS % (AUTO) 2 % (0-10); HEMATOCRIT 25 % (40-54); HEMOGLOBIN 7.6 g/dL (13.3-17.7); LYMPHOCYTES # (AUTO) 3.7 10^3/uL (1.0-4.0); LYMPHOCYTES % (AUTO) 26 % (12-44); MEAN CORPUSCULAR HEMOGLOBIN 32 pg (25-34); MEAN CORPUSCULAR HGB CONC 31 g/dL (32-36); MEAN CORPUSCULAR VOLUME 106 fL (80-99); MEAN PLATELET VOLUME 12.8 fL (9.0-12.2); MONOCYTES # (AUTO) 1.5 10^3/uL (0.0-1.0); MONOCYTES % (AUTO) 10 % (0-12); NEUTROPHILS # (AUTO) 8.6 10^3/uL (1.8-7.8); NEUTROPHILS % (AUTO) 59 % (42-75); WHITE BLOOD COUNT 14.4 10^3/uL (4.3-11.0)
[2022-01-13 18:00] LABS: PLATELET COUNT 35 10^3/uL (130-400)
[2022-01-13] MEDS ORDERED: OCTREOTIDE INJECTION 500 MCG in NS (IVPB) 99 ML IV SCH (18:00)
[2022-01-13] MEDS ORDERED: NS IV 500 ML 500 ML IV SCH (18:00)
[2022-01-13] MEDS ORDERED: PANTOPRAZOLE 40 MG (PROTONIX) VIAL ONE (18:04)
[2022-01-13] MEDS ORDERED: fentaNYL INJ 100 MCG/2 ML AMP IVP ONE ×2 (18:15→20:15)
[2022-01-13 18:16] LABS: ALBUMIN 2.3 GM/DL (3.2-4.5)
[2022-01-13 18:17] LABS: CALCIUM 7.7 MG/DL (8.5-10.1)
--- NOTE | 2022-01-13 18:18 | Diagnostic Imaging Report ---
INDICATION: Central line placement EXAMINATION: Chest 01/13/2022 FINDINGS: There is a right jugular line with the tip in the mid to proximal SVC. There is cardiomegaly. Pulmonary vasculature normal. There is mild elevation of left hemidiaphragm. No infiltrates, effusions or pneumothorax. IMPRESSION: 1. Central line as above. No acute cardiopulmonary process. Dictated by: Dictated on workstation # [id number]
[2022-01-13 18:19] LABS: TOTAL PROTEIN 4.3 GM/DL (6.4-8.2)
[2022-01-13 18:20] LABS: BILIRUBIN,TOTAL 0.5 MG/DL (0.1-1.0)
[2022-01-13 18:22] LABS: CREATININE SERUM 1.36 MG/DL (0.60-1.30)
[2022-01-13 18:23] LABS: INR 1.3 (0.8-1.4); PROTHROMBIN TIME PATIENT 17.1 SEC (12.2-14.7)
[2022-01-13 18:25] LABS: MAGNESIUM 1.9 MG/DL (1.6-2.4)
[2022-01-13 18:32] LABS: BILIRUBIN,URINE NEGATIVE (NEGATIVE); CLARITY,URINE CLEAR; COLOR,URINE YELLOW; GLUCOSE, URINE (UA) NEGATIVE (NEGATIVE); KETONES,URINE NEGATIVE (NEGATIVE); LEUKOCYTE ESTERASE ,URINE NEGATIVE (NEGATIVE); NITRITE,URINE NEGATIVE (NEGATIVE); PROTEIN,URINE NEGATIVE (NEGATIVE)
[2022-01-13] MEDS ORDERED: fentaNYL INJ 100 MCG/2 ML AMP IVP STA (18:37)
[2022-01-13 18:44] LABS: AMORPHOUS SEDIMENT,UR RARE AMOR URATES /LPF; BACTERIA,URINE TRACE /HPF
[2022-01-13 18:51] LABS: AMPHETAMINE SCREEN, URINE NEGATIVE (NEGATIVE); BARBITURATE SCREEN URINE NEGATIVE (NEGATIVE); BENZODIAZEPINES SCREEN URINE NEGATIVE (NEGATIVE); CANNABINOID SCREEN, URINE NEGATIVE (NEGATIVE); COCAINE SCREEN URINE NEGATIVE (NEGATIVE); METHADONE STAT NEGATIVE (NEGATIVE); METHAMPHETAMINE SCREEN URINE S NEGATIVE (NEGATIVE); OPIATE SCREEN URINE NEGATIVE (NEGATIVE); OXYCODONE STAT NEGATIVE (NEGATIVE); PROPOXYPHENE STAT NEGATIVE (NEGATIVE); TRICYCLIC ANTIDEPRESSANTS SCRE NEGATIVE (NEGATIVE)
[2022-01-13 19:06] LABS: LYMPHOCYTES % (MANUAL) 30 %; MONOCYTES % (MANUAL) 8 %; NEUTROPHILS % (MANUAL) 62 %; NUCLEATED RED BLOOD CELLS 2; RBC MORPH NORMAL
[2022-01-13 19:21] LABS: LIPASE 99 U/L (8-78)
[2022-01-13 20:07] VITALS: BP 113/46
== END 2022-01-13 20:50 | disposition short-term general hospital (02) ==
LOC: EDUNIT# 17:37 → ER 17:38
DX: K92.2 Gastrointestinal hemorrhage, unspecified (principal); R57.8 Other shock; D62 Acute posthemorrhagic anemia; K74.60 Unspecified cirrhosis of liver; D69.6 Thrombocytopenia, unspecified; I85.01 Esophageal varices with bleeding; R73.9 Hyperglycemia, unspecified; E66.9 Obesity, unspecified; Z68.41 Body mass index [BMI] 40.0-44.9, adult; Z20.822 Contact with and (suspected) exposure to COVID-19
CPT/HCPCS: 51702; 71045; 80053; 80306; 81000; 82150; 83690; 83735; 85007; 85027; 85610; 85730; 86850; 86900; 86901; 86920; 86927; 87636; 93041; 96361; 96365; 96366; 96367; 96368; 96375; 96376; 99285; G0480; P9016; P9017; P9035; 36415; 80320